=== PATIENT | female | born 1960 | race Caucasian/White ===

== ENCOUNTER → 2018-04-28 | Outpatient (CLI) | payer BC ==
[2018-04-28 17:26] LABS: Anisocytosis Slight; Basophils % (A) 0 %; Eosinophils # (A) 0.1 k/uL (0-0.7); Eosinophils % (A) 1 %; HCT 20.3 % (34.0-46.0); Hypochromasia Marked; Lymphocytes # (A) 1.2 k/uL (1.0-4.8); Lymphocytes % (A) 12 %; MCH 25.7 pg (25.0-35.0); MCHC 30.1 g/dL (31.0-37.0); MCV 85.6 fL (80.0-100.0); Mean Platelet Volume 7.5; Monocytes # (A) 0.4 k/uL (0-1.0); Monocytes % (A) 4 %; Neutrophils # (A) 8.1 k/uL (1.3-7.7); Neutrophils % (A) 82 %; Platelet Count 652 k/uL (150-450); Poikilocytosis Slight; RBC 2.37 m/uL (3.80-5.40); RDW 18.3 % (11.5-15.5); WBC 9.8 k/uL (3.8-10.6)
[2018-04-28 17:36] LABS: HGB 6.1 gm/dL (11.4-16.0)
== END | disposition home or self-care (01) ==
LOC: LABPAT 16:39
PROVIDERS: ATTEND Obstetrics & Gynecology
DX: Z01.812 Encounter for preprocedural laboratory examination (principal); N93.8 Other specified abnormal uterine and vaginal bleeding
CPT/HCPCS: 36415; 85025

== ENCOUNTER 2018-05-03 08:01 | Day surgery (SDC) | payer BC ==
[2018-04-29 11:19] VITALS: BMI 21.4
[~2018-05-03 08:01] MED LIST: DEXAMETHASONE SOD PHOSPHATE 10 MG/ML 1 ML VIAL IV ONE; LACTATED RINGERS 1,000 ML IV SCH; MIDAZOLAM 2 MG/2 ML VIAL IV PRN; ONDANSETRON 4 MG/2 ML VIAL IVP ONE; Pre Op ABX Message 1 EACH MISC MISCELLANE ONE; SCOPOLAMINE 1.5MG/72HR PATCH TRANSDERM ONE; fentaNYL (PF) 50 MCG/ML 2 ML AMP IV PRN
[2018-05-03 09:25] LABS: Glucose,Whole Blood 87 mg/dL (75-99)
[2018-05-03 09:30] LABS: Anisocytosis Slight; Basophils % (A) 0 %; Eosinophils # (A) 0.1 k/uL (0-0.7); Eosinophils % (A) 1 %; HCT 30.4 % (34.0-46.0); Hypochromasia Marked; Lymphocytes # (A) 2.5 k/uL (1.0-4.8); Lymphocytes % (A) 21 %; MCH 26.2 pg (25.0-35.0); MCHC 30.7 g/dL (31.0-37.0); MCV 85.2 fL (80.0-100.0); Mean Platelet Volume 7.1; Monocytes # (A) 0.8 k/uL (0-1.0); Monocytes % (A) 7 %; Neutrophils # (A) 8.4 k/uL (1.3-7.7); Neutrophils % (A) 70 %; Platelet Count 353 k/uL (150-450); Poikilocytosis Marked; RBC 3.57 m/uL (3.80-5.40); RDW 16.7 % (11.5-15.5); WBC 12.1 k/uL (3.8-10.6)
[2018-05-03 09:36] LABS: HGB 9.3 gm/dL (11.4-16.0)
[2018-05-03] MEDS ORDERED: diphenhydrAMINE 50 MG/ML 1 ML VIAL IVP PRN (09:51)
[2018-05-03] MEDS ORDERED: Acetaminophen-Codeine 300-30mg TAB PO PRN ×2 (09:51)
[2018-05-03] MEDS ORDERED: MIDAZOLAM 2 MG/2 ML VIAL ONE (09:51)
[2018-05-03] MEDS ORDERED: ACETAMINOPHEN IV (For NPO) 1,000 MG in EMPTY BAG 1 BAG IVPB ONE (09:51)
[2018-05-03] MEDS ORDERED: fentaNYL (PF) 50 MCG/ML 2 ML AMP ONE (09:51)
[2018-05-03] MEDS ORDERED: PROPOFOL 10 MG/ML 20 ML VIAL IV ONE (09:51)
[2018-05-03] MEDS ORDERED: ONDANSETRON 4 MG/2 ML VIAL IVP PRN (09:51)
[2018-05-03] MEDS ORDERED: METOCLOPRAMIDE 5 MG/ML 2 ML VIAL IVP PRN (09:51)
[2018-05-03] MEDS ORDERED: SIMETHICONE 80 MG CHEWABLE PO PRN (09:51)
[2018-05-03] MEDS ORDERED: LIDOCAINE 1% INJ 10MG/ML (20 ML MDV) ONE (09:51)
[2018-05-03] MEDS ORDERED: ACETAMINOPHEN IV (For NPO) 1,000 MG/100 ML VIAL ONE (09:51)
[2018-05-03] MEDS ORDERED: LACTATED RINGERS 1,000 ML IV SCH (10:00)
--- NOTE | 2018-05-03 10:19 | P.OP ---
Date of Procedure: 05/03/18 Preoperative Diagnosis: #1. Postmenopausal bleeding #2. Endometrial mass #3. Uterine fibroids Postoperative Diagnosis: Same Procedure(s) Performed: #1. Diagnostic hysteroscopy #2. Dilation and curettage Anesthesia: other (Gen. by face mask) Surgeon: Prosper Kirk Estimated Blood Loss (ml): 5 IV fluids (ml): 200 Urine output (ml): 75 Pathology: other (Endometrial curettings) Condition: stable Disposition: PACU Operative Findings: Preoperative pelvic examination demonstrated an atrophic midplane mobile normal shaped uterus with normal adnexa bilaterally. Intraoperatively, the uterus sounded to 7 cm a. The bilateral tubal ostia were seen. There was a suggestion of a mass in the left lateral posterior portion of the endometrial cavity which appeared to be removed during the procedure and appears consistent with the organized clot pending pathology. Otherwise, the normal gritty texture was encountered throughout the initial cavity and minimal tissue was removed. Description of Procedure: Patient was prepped and draped in usual fashion after general anesthesia was administered by the anesthesiologist. A weighted speculum was placed and the bladder drained of approximately 75 mL of clear maddie urine. The anterior lip the cervix was grasped with a signal 2 tenaculum and uterus sounded to 7 cm as noted above. Serial dilation was carried out to admit the 5 mm diagnostic hysteroscope. The findings were as noted above with essentially normal atrophic appearing findings with a suggestion of a possible adherent mass in the left lateral inferior portion of the uterine cavity. The bilateral tubal ostia were seen. There was no other pathology noted in the uterine cavity. The scope was set aside and further dilation carried out to admit a small sharp curette which was utilized to thoroughly and circumferentially curet the endometrial contents onto a Telfa placed in the vagina. The first pass with the endometrial curet produced at approximately 1.5 cm x 0.5 x 0.8 cm solid appearing mass which may be consistent with an organized clot. There was minimal further tissue removed after several passes with the sharp curet. The typical gritty texture was encountered throughout. The curet was set aside and a polyp forceps utilized to probe for any further tissue, none was apparent or removed. All instrumentation was then removed. There is no ongoing bleeding from the cervix or from anywhere else. Estimated blood loss for the case was less than 5 mL. There were no complications. All sponge, instrument, and needle counts were correct. The patient tolerated the procedure well and proceeded to the recovery room in stable condition.
[2018-05-03 10:33] VITALS: TEMP 98
[2018-05-03 10:44] VITALS: RESP 16
[2018-05-03 12:24] VITALS: BP 127/78; PULSE 94
[2018-05-04] MEDS ORDERED: ACETAMINOPHEN TAB 325 MG TAB PO PRN (09:53)
== END 2018-05-03 12:34 | disposition home or self-care (01) ==
LOC: OR 08:01
PROVIDERS: ATTEND Obstetrics & Gynecology
DX: N84.0 Polyp of corpus uteri (principal); D25.9 Leiomyoma of uterus, unspecified; K50.90 Crohn's disease, unspecified, without complications; Z88.1 Allergy status to other antibiotic agents; Z88.0 Allergy status to penicillin; Z91.048 Other nonmedicinal substance allergy status; Z86.718 Personal history of other venous thrombosis and embolism; Z79.01 Long term (current) use of anticoagulants; Z79.52 Long term (current) use of systemic steroids; Z79.899 Other long term (current) drug therapy; Z79.890 Hormone replacement therapy; Z88.5 Allergy status to narcotic agent; Z91.013 Allergy to seafood; Z90.49 Acquired absence of other specified parts of digestive tract
CPT/HCPCS: 81025; 88305; 85025; 58558; J2250; J1100; J2405; J2001; J3010; J0131; J2704

== ENCOUNTER → 2018-09-06 | Outpatient (CLI) | payer BC ==
[2018-09-06 15:51] LABS: Anisocytosis Slight; Basophils % (A) 0 %; Eosinophils % (A) 0 %; HCT 31.5 % (34.0-46.0); HGB 8.6 gm/dL (11.4-16.0); Hypochromasia Marked; Lymphocytes # (A) 0.6 k/uL (1.0-4.8); Lymphocytes % (A) 6 %; MCH 20.5 pg (25.0-35.0); MCHC 27.2 g/dL (31.0-37.0); MCV 75.3 fL (80.0-100.0); Mean Platelet Volume 6.2; Microcytosis Slight; Monocytes # (A) 0.2 k/uL (0-1.0); Monocytes % (A) 2 %; Neutrophils # (A) 10.2 k/uL (1.3-7.7); Neutrophils % (A) 93 %; Platelet Count 389 k/uL (150-450); RBC 4.18 m/uL (3.80-5.40)
== END | disposition home or self-care (01) ==
LOC: LABWHC1 15:20
PROVIDERS: ATTEND Internal Medicine Gastroenterology
DX: Z00.6 Encounter for examination for normal comparison and control in clinical research program (principal)
CPT/HCPCS: 36415; 85025

== ENCOUNTER → 2019-01-16 | Outpatient (CLI) | payer BC | END | disposition home or self-care (01) | LOC: LABWHC1 16:25 | PROVIDERS: ATTEND Internal Medicine Gastroenterology | DX: R21 Rash and other nonspecific skin eruption (principal) | CPT/HCPCS: 36415; 82085; 82550 ==

== ENCOUNTER → 2020-04-29 | Outpatient (CLI) | payer BC | END | disposition home or self-care (01) | LOC: LABWHC1 14:16 | PROVIDERS: ATTEND Internal Medicine Gastroenterology | DX: Z11.59 Encounter for screening for other viral diseases (principal) ==

== ENCOUNTER → 2020-06-14 | Outpatient (CLI) | payer BC | END | disposition home or self-care (01) | LOC: LABWHC1 11:20 | PROVIDERS: ATTEND Internal Medicine Gastroenterology | DX: Z11.59 Encounter for screening for other viral diseases (principal) ==

== ENCOUNTER → 2024-02-24 | Outpatient (CLI) | payer OTHER | END | disposition home or self-care (01) | LOC: LABWHC1 12:42 | DX: K50.812 Crohn's disease of both small and large intestine with intestinal obstruction (principal) | CPT/HCPCS: 36415; 82542; 82657; 85652 ==

== ENCOUNTER 2024-07-04 08:37 | Emergency (ER) | payer OTHER ==
[2024-07-04 08:47] VITALS: TEMP 98.4
--- NOTE | 2024-07-04 09:52 | ED ---
Skin/Abscess/FB HPI - General Chief complaint: Skin/Abscess/Foreign Body Stated complaint: facial wound Time Seen by Provider: 07/04/24 08:48 Source: patient, RN notes reviewed Mode of arrival: ambulatory Limitations: no limitations - History of Present Illness Initial comments: 64-year-old female presents emergency department complaint of a wound on her forehead. She states a few days ago she was struck in the head while walking with a bug. Patient states has slowly developed some redness now has had increasing swelling. Denies any difficulty breathing states the swelling around her eyes, forehead and some redness. Patient had no reported fever no headache or dizziness. - Related Data Home Medications Medication Instructions Recorded Confirmed Bifidobacterium Infantis [Align] 4 mg PO DAILY 04/29/18 05/03/18 [place] Instant Breakfast 1 packet PO BID-W/MEALS 04/29/18 05/03/18 Ferrous Sulfate [Iron (65 MG 2 tab PO DAILY 04/29/18 05/03/18 Elemental)] Glutamine [Endari] 5 gm PO BID 04/29/18 05/03/18 Loperamide [Imodium] 2 mg PO QID PRN 04/29/18 05/03/18 Multivitamins, Pediatric Chew 2 tab PO DAILY 04/29/18 05/03/18 [Poly--Kaye Chew (formulary)] Norethindrone [Ortho Micronor] 0.35 mg PO DAILY 04/29/18 05/03/18 Rivaroxaban [Xarelto] 20 mg PO DAILY 04/29/18 05/03/18 predniSONE 20 mg PO DAILY 04/29/18 05/03/18 Previous Rx's Medication Instructions Recorded Sulfamethox-Tmp 800-160Mg [Bactrim 1 each PO Q12HR #20 tab 07/04/24 Ds] predniSONE 50 mg PO DAILY #5 tab 07/04/24 Allergies Allergy/AdvReac Type Severity Reaction Status Date / Time acetaminophen [From Lortab] Allergy Severe Swelling Verified 07/04/24 08:47 MOUTH, LIPS hydrocodone [From Lortab] Allergy Severe Swelling Verified 07/04/24 08:47 MOUTH, LIPS adhesive tape Allergy CUTS SKIN, Verified 07/04/24 08:47 RED & INFLAMED ampicillin Allergy Anaphylaxis Verified 07/04/24 08:47 Penicillins Allergy Anaphylaxis Verified 07/04/24 08:47 Tetracyclines Allergy Rapid Verified 07/04/24 08:47 Heart Rate Review of Systems ROS Statement: Those systems with pertinent positive or pertinent negative responses have been documented in the HPI. ROS Other: All systems not noted in ROS Statement are negative. Past Medical History Past Medical History: Deep Vein Thrombosis (DVT), GI Bleed Additional Past Medical History / Comment(s): ANEMIA; BLOOD TRANSFUSIONS X3 03/2018. CROHN'S, FREQ DIARRHEA, RECTAL BLEEDING OCC; ON PO STEROID. DVT RT LEG FOLLOWING FOOT INJ 12/2017. EDEMA ANKLES & FEET. History of Any Multi-Drug Resistant Organisms: None Reported Past Surgical History: Bowel Resection Additional Past Surgical History / Comment(s): BOWEL RESECTION X2. ANAL FISTULA. COLONOSCOPIES. Past Anesthesia/Blood Transfusion Reactions: No Reported Reaction Past Psychological History: No Psychological Hx Reported Past Alcohol Use History: Rare Past Drug Use History: None Reported - Past Family History Mother Family Medical History: No Reported History General Exam Limitations: no limitations General appearance: alert, in no apparent distress Head exam: Present: atraumatic, normocephalic. Absent: normal inspection (Erythematous sore, swelling of the forehead, periorbital region) Eye exam: Present: PERRL, EOMI, periorbital swelling. Absent: normal appearance, scleral icterus, conjunctival injection ENT exam: Present: normal exam, normal oropharynx, mucous membranes moist Neck exam: Present: normal inspection, full ROM. Absent: tenderness, meningismus, lymphadenopathy Respiratory exam: Present: normal lung sounds bilaterally. Absent: respiratory distress, wheezes, rales, rhonchi, stridor Cardiovascular Exam: Present: normal rhythm, tachycardia, normal heart sounds. Absent: systolic murmur, diastolic murmur, rubs, gallop, clicks Course Vital Signs 07/04/24 08:38 Temperature 98.4 F Pulse Rate 121 H Respiratory 18 Rate Blood Pressure 175/105 O2 Sat by Pulse 100 Oximetry Medical Decision Making - Medical Decision Making Was pt. sent in by a medical professional or institution (, PA, [facility], urgent care, hospital, or half-way...) When possible be specific @ -No Did you speak to anyone other than the patient for history (EMS, parent, family, police, friend...)? What history was obtained from this source @ -No Did you review nursing and triage notes (agree or disagree)? Why? @ -I reviewed and agree with nursing and triage notes Were old charts reviewed (outside hosp., previous admission, EMS record, old EKG, old radiological studies, urgent care reports/EKG's, half-way records)? Report findings @ -No old charts were reviewed Differential Diagnosis (chest pain, altered mental status, abdominal pain women, abdominal pain men, vaginal bleeding, weakness, fever, dyspnea, syncope, headache, dizziness, GI bleed, back pain, seizure, CVA, palpatations, mental health, musculoskeletal)? @ -Cellulitis, allergic reaction, facial swelling EKG interpreted by me (3pts min.). @ -None X-rays interpreted by me (1pt min.). @ -None done CT interpreted by me (1pt min.). @ -None done U/S interpreted by me (1pt. min.). @ -None done What testing was considered but not performed or refused? (CT, X-rays, U/S, labs)? Why? @ -None What meds were considered but not given or refused? Why? @ -None Did you discuss the management of the patient with other professionals (professionals i.e. , PA, [facility], lab, RT, psych nurse, director of social media marketing, television program director, teacher, third officer, case filler)? Give summary @ -No Was smoking cessation discussed for >3mins.? @ -No Was critical care preformed (if so, how long)? @ -No Were there social determinants of health that impacted care today? How? (Homelessness, low income, unemployed, alcoholism, drug addiction, transportation, low edu. Level, literacy, decrease access to med. care, nursing home, rehab)? @ -No Was there de-escalation of care discussed even if they declined (Discuss DNR or withdrawal of care, Hospice)? DNR status @ -No What co-morbidities impacted this encounter? (DM, HTN, Smoking, COPD, CAD, Cancer, CVA, ARF, Chemo, Hep., AIDS, mental health diagnosis, sleep apnea, morbid obesity)? @ -None Was patient admitted / discharged? Hospital course, mention meds given and route, prescriptions, significant lab abnormalities, going to OR and other pertinent info. @ -disCharge patient is improved after steroids, IV antibiotics laboratory studies unremarkable discharged on Bactrim, prednisone. Undiagnosed new problem with uncertain prognosis? @ -No Drug Therapy requiring intensive monitoring for toxicity (Heparin, Nitro, Insulin, Cardizem)? @ -No Were any procedures done? @ -No Diagnosis/symptom? @ -cellulitis, facial swelling Acute, or Chronic, or Acute on Chronic? @ -acute Uncomplicated (without systemic symptoms) or Complicated (systemic symptoms)? @ -uncomplicated Side effects of treatment? @ -No Exacerbation, Progression, or Severe Exacerbation? @ -No Poses a threat to life or bodily function? How? (Chest pain, USA, ME, pneumonia, PE, COPD, DKA, ARF, appy, cholecystitis, CVA, Diverticulitis, Homicidal, Suicidal, threat to staff... and all critical care pts) @ -No - Lab Data Result diagrams: 07/04/24 10:23 07/04/24 11:05 Lab Results 07/04/24 07/04/24 Range/Units 10:23 11:05 WBC 6.4 (3.8-10.6) k/uL RBC 4.77 (3.80-5.40) m/uL Hgb 14.6 (11.4-16.0) gm/dL Hct 44.9 (34.0-46.0) % MCV 94.2 (80.0-100.0) fL MCH 30.6 (25.0-35.0) pg MCHC 32.5 (31.0-37.0) g/dL RDW 12.6 (11.5-15.5) % Plt Count 205 (150-450) k/uL MPV 7.3 Neutrophils % 76 % Lymphocytes % 12 % Monocytes % 6 % Eosinophils % 2 % Basophils % 1 % Neutrophils # 4.9 (1.3-7.7) k/uL Lymphocytes # 0.8 L (1.0-4.8) k/uL Monocytes # 0.4 (0-1.0) k/uL Eosinophils # 0.1 (0-0.7) k/uL Basophils # 0.1 (0-0.2) k/uL Sodium 139 (137-145) mmol/L Potassium 4.0 (3.5-5.1) mmol/L Chloride 105 (98-107) mmol/L Carbon Dioxide 26 (22-30) mmol/L Anion Gap 8 mmol/L BUN 12 (7-17) mg/dL Creatinine 1.01 (0.52-1.04) mg/dL Est GFR (CKD-EPI)AfAm 69 (>60 ml/min/1.73 sqM) Est GFR (CKD-EPI)NonAf 60 (>60 ml/min/1.73 sqM) Glucose 78 (74-99) mg/dL Calcium 9.1 (8.4-10.2) mg/dL Total Bilirubin 0.9 (0.2-1.3) mg/dL AST 31 (14-36) U/L ALT 19 (4-34) U/L Alkaline Phosphatase 118 (38-126) U/L Total Protein 8.2 (6.3-8.2) g/dL Albumin 4.4 (3.5-5.0) g/dL Disposition Clinical Impression: Facial cellulitis Disposition: HOME SELF-CARE Condition: Stable Instructions (If sedation given, give patient instructions): Cellulitis (ED) Additional Instructions: Please return to the Emergency Department if symptoms worsen or any other concerns. Prescriptions: Sulfamethox-Tmp 800-160Mg [Bactrim Ds] 1 each PO Q12HR #20 tab predniSONE 50 mg PO DAILY #5 tab Is patient prescribed a controlled substance at d/c from ED?: No Referrals: None,Stated [Primary Care Provider] - 1-2 days Time of Disposition: 11:54
[2024-07-04 10:34] LABS: Basophils # (A) 0.1 k/uL (0-0.2); Basophils % (A) 1 %; Eosinophils # (A) 0.1 k/uL (0-0.7); Eosinophils % (A) 2 %; HCT 44.9 % (34.0-46.0); HGB 14.6 gm/dL (11.4-16.0); Lymphocytes # (A) 0.8 k/uL (1.0-4.8); Lymphocytes % (A) 12 %; MCH 30.6 pg (25.0-35.0); MCHC 32.5 g/dL (31.0-37.0); MCV 94.2 fL (80.0-100.0); Mean Platelet Volume 7.3; Monocytes # (A) 0.4 k/uL (0-1.0); Monocytes % (A) 6 %; Neutrophils # (A) 4.9 k/uL (1.3-7.7); Neutrophils % (A) 76 %; Platelet Count 205 k/uL (150-450); RBC 4.77 m/uL (3.80-5.40); RDW 12.6 % (11.5-15.5); WBC 6.4 k/uL (3.8-10.6)
[2024-07-04] MEDS: SODIUM CHLORIDE 0.9% 1,000 ML IV ONE (10:39)
[2024-07-04] MEDS: diphenhydrAMINE 50 MG/ML 1 ML VIAL IVP STA (10:39)
[2024-07-04] MEDS: methylPREDNISolone SOD SUCCI 125 MG/2 ML VIAL IV STA (10:39)
[2024-07-04 11:40] LABS: ALT 19 U/L (4-34); AST 31 U/L (14-36); African American GFR (CKD) 69 (>60 ml/min/1.73 sqM); Albumin 4.4 g/dL (3.5-5.0); Alkaline Phosphatase 118 U/L (38-126); Anion Gap 8 mmol/L; Blood Urea Nitrogen 12 mg/dL (7-17); Calcium 9.1 mg/dL (8.4-10.2); Carbon Dioxide 26 mmol/L (22-30); Chloride 105 mmol/L (98-107); Glucose 78 mg/dL (74-99); Non-African American GFR(CKD) 60 (>60 ml/min/1.73 sqM); Sodium 139 mmol/L (137-145); Total Bilirubin 0.9 mg/dL (0.2-1.3); Total Protein 8.2 g/dL (6.3-8.2)
[2024-07-04 12:25] VITALS: BP 171/94; PULSE 85; RESP 16
== END 2024-07-04 12:24 | disposition home or self-care (01) ==
LOC: EC 08:37
CPT/HCPCS: 36415; 80053; 85025; 96365; 96366; 96375; 99283